=== PATIENT | female | born 1990 | race Caucasian/White ===

== ENCOUNTER 2018-02-07 10:57 | Emergency (ER) | payer OTHER ==
[2018-02-07 11:10] VITALS: BP 113/65; PULSE 91; TEMP 98.3; BMI 21.9
[2018-02-07] MEDS ORDERED: ACETAMINOPHEN 500 MG TABLET (FP) PO ONE (13:16)
[2018-02-07] MEDS ORDERED: ACETAMINOPHEN 500 MG TABLET (FP) ONE (13:20)
--- NOTE | 2018-02-07 13:42 | PDOC ---
History of Present Illness - General Chief Complaint: Sore Throat Stated Complaint: FEVER (15 WKS ), COUGH Time Seen by Provider: 02/07/18 12:51 History Source: Patient Exam Limitations: No Limitations - History of Present Illness Initial Comments: 02/07/18 13:43 This is a 28-year-old is currently 15 weeks gestation presents to the emergency department with rhinorrhea, nasal congestion, headaches, body aches, sore throat, moist cough for the past 4 days. Patient is also reported 3 episodes of posttussive vomiting. Patient with 2 parked today for evaluation and was referred to emergency department. Patient currently denies abdominal pain, vaginal bleeding, vaginal discharge, dysuria. Patient has been taking Claritin, Robitussin and Tylenol for relief of symptoms. Patient states his medications were by the symptoms come back after medications wear off. She denies chest pain, shortness of breath. Chest with next Past History - Past Medical History Allergies/Adverse Reactions: Allergies Allergy/AdvReac Type Severity Reaction Status Date / Time No Known Allergies Allergy Verified 02/07/18 11:10 Home Medications: Ambulatory Orders NK [No Known Home Medication] 02/07/18 COPD: No - Suicide/Smoking/Psychosocial Hx Smoking History: Never smoked Information on smoking cessation initiated: No Hx Alcohol Use: No Drug/Substance Use Hx: No Substance Use Type: None Review of Systems - Review of Systems Able to Perform ROS?: Yes Is the patient limited Marshallese proficient: No Constitutional: Yes: See HPI HEENTM: Yes: See HPI Respiratory: Yes: See HPI Cardiac (ROS): No: Symptoms Reported ABD/GI: Yes: See HPI : No: Symptoms Reported Musculoskeletal: Yes: See HPI Integumentary: No: Symptoms Reported Neurological: No: Symptoms reported Endocrine: No: Symptoms Reported Hematologic/Lymphatic: No: Symptoms Reported *Physical Exam - Vital Signs Last Vital Signs Temp Pulse Resp BP Pulse Ox 98.3 F 91 H 17 113/65 100 02/07/18 11:08 02/07/18 11:08 02/07/18 11:08 02/07/18 11:08 02/07/18 11:08 - Physical Exam General Appearance: Yes: Appropriately Dressed. No: Apparent Distress HEENT: positive: TMs Normal, Pharyngeal Erythema, Nasal Congestion, Rhinorrhea. negative: Tonsillar Exudate, Tonsillar Erythema, Sinus Tenderness Neck: positive: Trachea midline, Supple Respiratory/Chest: positive: Lungs Clear, Normal Breath Sounds. negative: Respiratory Distress, Accessory Muscle Use Cardiovascular: positive: Regular Rhythm, Regular Rate. negative: Murmur Gastrointestinal/Abdominal: positive: Normal Bowel Sounds, Soft. negative: Tender Musculoskeletal: positive: Normal Inspection. negative: CVA Tenderness Extremity: positive: Normal Inspection Integumentary: positive: Normal Color, Dry, Warm Neurologic: positive: Alert, Normal Response, Motor Strength 5/5 ED Treatment Course - Medications Given in the ED: ED Medications Discontinued Medications Generic Name Dose Route Start Last Admin Trade Name Freq PRN Reason Stop Dose Admin Acetaminophen 1,000 mg 02/07/18 13:16 02/07/18 13:22 Tylenol - PO 02/07/18 13:17 1,000 mg ONCE ONE Administration Medical Decision Making - Medical Decision Making 02/07/18 13:49 A/P: 28-year-old female with 4 days of flulike symptoms. Patient is 15 weeks by dates. Oropharynx with pharyngeal erythema. No tonsillar erythema or exudate present. Cobblestoning noted in the posterior oropharynx. No sinus tenderness present. TMs clear without erythema or exudates. External auditory canals clear. No cervical lymphadenopathy is present. Lungs clear to auscultation bilaterally. RRR. S1-S2 present. No murmur, rub or gallop appreciated. Abdomen soft nontender with from this palpated 1 cm below umbilicus. Cranial nerves II through XII intact. Steady gait noted. Influenza versus upper restrained infection. Influenza testing, Tylenol, reassess 02/07/18 14:27 Patient tested positive for influenza A. Given symptoms started more than 72 hours ago, I will defer treatment with Tamiflu. Symptomatic treatment was explained to the patient verbalizes understanding. I will discharge the patient home with follow-up with her OPTOELECTRONIC TECHNICIAN as scheduled. *DC/Admit/Observation/Transfer Diagnosis at time of Disposition: Influenza A - Discharge Dispostion Disposition: HOME Condition at time of disposition: Stable Admit: No - Referrals - Patient Instructions Additional Instructions: Rest, drink lots of fluids: Teas, water, soups, Pedialyte Saltwater gargles Steamy showers/seem to face break up mucus Avoid contact with others until fevers and cough resolved Lots of handwashing and good hygiene Continue [id number] medications for symptomatic relief Tylenol or Motrin for fever and pain Followup with private physician in one to 2 days as needed Return to emergency department for worsened symptoms, fevers, dehydration - Post Discharge Activity
== END 2018-02-07 15:01 | disposition home or self-care (01) ==
LOC: JERFT 10:57
DX: O26.892 Other specified pregnancy related conditions, second trimester (principal); O98.512 Other viral diseases complicating pregnancy, second trimester; J09.X2 Influenza due to identified novel influenza A virus with other respiratory manifestations; Z3A.15 15 weeks gestation of pregnancy
CPT/HCPCS: 87804; 99281-25

== ENCOUNTER 2019-06-16 12:55 | Inpatient (IN) | payer OTHER ==
--- NOTE | 2019-06-16 13:19 | PN ---
Progress Note (short form) - Note Progress Note: cx 9 cm 100 vx o mi, fhr cat 1, contraction q 2 min
[2019-06-16] MEDS ORDERED: AMPICILLIN - 2 GM in SODIUM CHLORIDE 100 ML IVPB ONE (13:23)
[2019-06-16 13:25] VITALS: BMI 26.2
--- NOTE | 2019-06-16 13:29 | HP ---
Past Medical History - Primary Care Physician PCP:: Maxx Cottrell - Admission Chief Complaint: 33.5 weeks, labor History of Present Illness: 29 yo f 33.5 weeks, c/o contraction, no rom, no bleeding, no fever , care [facility] care no complication cx 9 cm 100 vx 0 ,mi, fhr cat 1, regular contraction History Source: Patient Limitations to Obtaining History: Language Barrier - Past Medical History Gastrointestinal: Yes: Constipation. No: GERD ...: 3 ...Para: 2 ...Term: 2 ...EDC by Dates: 07/28/19 ...EDC by Sono: 07/28/19 Psych: Yes: Other (no h/o mental illness) - Past Surgical History Past Surgical History: Yes: None Hx Myomectomy: No Hx Transabdominal Cerclage: No - Smoking History Smoking history: Never smoked Have you smoked in the past 12 months: No - Alcohol/Substance Use Hx Alcohol Use: No History of Substance Use: reports: None - Social History Usual Living Arrangement: Yes: With Spouse History of Recent Travel: No Home Medications - Allergies Allergies/Adverse Reactions: Allergies Allergy/AdvReac Type Severity Reaction Status Date / Time No Known Allergies Allergy Verified 02/07/18 11:10 - Home Medications Home Medications: Ambulatory Orders Iron 1 tablet PO DAILY 07/18/18 Acetaminophen [Tylenol .Regular Strength -] 650 mg PO Q3H PRN tablet 07/19/18 Benzocaine [Americaine 20% [place] -] 1 spray TP DAILY PRN bottle 07/19/18 Ferrous Sulfate [Feosol] 325 mg PO BIDWM tab 07/19/18 Ibuprofen [Motrin -] 200 mg PO Q4H PRN tablet 07/19/18 Vitamins (Sjr) - 1 tab PO DAILY tablet 07/19/18 Witch Natalie 50% (Tucks) [Tucks Pads -] 1 pad TP DAILY PRN pad 07/19/18 Review of Systems - Review of Systems Constitutional: reports: No Symptoms Eyes: reports: No Symptoms HENT: reports: No Symptoms Neck: reports: No Symptoms Cardiovascular: reports: No Symptoms Gastrointestinal: reports: No Symptoms Genitourinary: reports: No Symptoms Breasts: reports: No Symptoms Reported Musculoskeletal: reports: No Symptoms Integumentary: reports: No Symptoms Neurological: reports: No Symptoms Endocrine: reports: No Symptoms Hematology/Lymphatic: reports: No Symptoms Psychiatric: reports: No Symptoms Physical Exam - Maternity Constitutional: Yes: Well Nourished, No Distress, Calm Eyes: Yes: WNL, Conjunctiva Clear, EOM Intact HENT: Yes: WNL, Atraumatic, Normocephalic Neck: Yes: WNL, Supple, Trachea Midline Cardiovascular: Yes: WNL, Regular Rate and Rhythm Breast(s): Yes: WNL - Abdominal Exam/OB Fundal Height: 32 Number of Fetuses: Single Presentation: Vertex Contractions: Yes Regularity: Regular Intensity: Mod/Strong Monitor Mode: External Heart Rate Location: [facility] Category: I Accelerations: Non-Uniform Decelerations: None - Vaginal Exam/OB Vaginal Bleediing: No Speculum Exam: No Dilatation (cm): 9cm Effacement (%): 100 Amniotic Membrane Status: Bulging Presentation: Vertex/Position Station: 0 - Physical Exam Musculoskeletal: Yes: WNL Extremities: Yes: WNL Edema: Yes Edema: LLE: Trace, RLE: Trace Deep Tendon Reflex Grade: Normal +2 Psychiatric: Yes: WNL Hemorrhage Risk Assessment - Risk Factors Medium Risk Factors: Yes: None High Risk Factors: Yes: None Risk Score: 1 Risk Level: Medium Risk Problem List - Problems (1) with 33 completed weeks gestation Code(s): Z3A.33 - 33 WEEKS GESTATION OF (2) with 33 completed weeks gestation Code(s): Z3A.33 - 33 WEEKS GESTATION OF (3) Premature labor Code(s): O60.00 - LABOR WITHOUT DELIVERY, UNSPECIFIED TRIMESTER Qualifiers: labor trimester: third trimester Fetus number: single or unspecified fetus Assessment/Plan admit for vaginal delivery, FHM
[2019-06-16] MEDS ORDERED: DEXTROSE 5%-LACTATED RINGERS 1,000 ML IV SCH (13:30)
[2019-06-16 13:45] LABS: BASO % 0.2 % (0-2.0); EOS % 0.8 % (0-4.5); HEMATOCRIT 38.3 % (32.4-45.2); HEMOGLOBIN 12.6 GM/dL (10.7-15.3); LYMPH % 15.7 % (8-40); MCH 27.7 pg (25.7-33.7); MCHC 32.8 g/dl (32.0-36.0); MEAN CELL VOLUME 84.4 fl (80-96); MEAN PLT VOLUME 10.2 fl (7.5-11.1); MONO % 5.4 % (3.8-10.2); NEUT % 77.9 % (42.8-82.8); PLATELET COUNT 94 K/MM3 (134-434); RBC 4.53 M/mm3 (3.60-5.2); RDW 15.1 % (11.6-15.6); WHITE BLOOD COUNT 11.8 K/mm3 (4.0-10.0)
[2019-06-16] MEDS ORDERED: BISACODYL 10 MG SUPP.RECT RC PRN (13:50)
[2019-06-16] MEDS ORDERED: BENZOCAINE 20% 57 GM BOTTLE TP PRN (13:50)
[2019-06-16] MEDS ORDERED: METHYLERGONOVINE MALEATE 0.2 MG/1 ML AMP IM PRN (13:50)
[2019-06-16] MEDS ORDERED: WITCH HAZEL 50% (TUCKS) 40 PAD/JAR PAD TP PRN (13:50)
[2019-06-16] MEDS ORDERED: BENZOCAINE 28 GM HEMORRHOIDAL OINTMENT TP PRN (13:50)
[2019-06-16 13:55] LABS: INR 0.96 (0.83-1.09); PROTHROMBIN TIME (PATIENT) 11.3 SEC (9.7-13.0)
--- NOTE | 2019-06-16 13:56 | PN ---
Delivery - Delivery Vaginal Delivery: No Problems (cx full , head on perinum,haed delivered , no cord, ant. and post shoulder with no difficulty . live baby girl 8/9 , no complication, EBL 300), Spontaneous Episiotomy/Laceration: None EBL (cc): 300 Delivery, Single - [place] Feeding Plan Initial Plan: Elected not to breastfeed exclusively throughout hospitalization
[2019-06-16 13:57] LABS: ACTIVATED PTT 31.2 SECONDS (25.2-36.5)
[2019-06-16] MEDS ORDERED: OXYTOCIN 20 UNITS in 0.9% NS 20 UNIT/1,000 ML INFUS.BAG IV SCH (14:00)
[2019-06-16] MEDS ORDERED: D5W-LR W/ 20 UNITS OXYTOCIN 1,000 ML IV SCH (14:00)
[2019-06-16 14:07] LABS: BLOOD UREA NITROGEN 6.5 mg/dL (7-18); CALCIUM 8.5 mg/dL (8.5-10.1); CREATININE 0.5 mg/dL (0.55-1.3); POTASSIUM 3.9 mmol/L (3.5-5.1)
[2019-06-16] MEDS: IBUPROFEN 600 MG TABLET (FP) PO PRN ×2 (14:52→19:49)
[2019-06-16] MEDS ORDERED: IBUPROFEN 600 MG TABLET (FP) PO ONE (14:54)
[2019-06-16] MEDS: ACETAMINOPHEN 325 MG TABLET (FP) PO PRN (19:50)
[2019-06-16] MEDS: FERROUS SO4 325 MG TABLET (FP) PO SCH (22:25)
[2019-06-17 08:24] LABS: BASO % 0.4 % (0-2.0); EOS % 1.8 % (0-4.5); HEMATOCRIT 31.5 % (32.4-45.2); HEMOGLOBIN 10.5 GM/dL (10.7-15.3); LYMPH % 17.9 % (8-40); MCH 27.9 pg (25.7-33.7); MCHC 33.2 g/dl (32.0-36.0); MONO % 6.8 % (3.8-10.2); NEUT % 73.1 % (42.8-82.8); PLATELET COUNT 77 K/MM3 (134-434); RBC 3.75 M/mm3 (3.60-5.2); RDW 14.8 % (11.6-15.6); WHITE BLOOD COUNT 12.9 K/mm3 (4.0-10.0)
[2019-06-17] MEDS: FERROUS SO4 325 MG TABLET (FP) PO SCH ×2 (09:01→22:15)
[2019-06-17] MEDS: PRENATAL VITAMINS W/ FOLIC ACID TABLET (FP) PO SCH (09:01)
[2019-06-17] MEDS ORDERED: DIPHTH,PERTUSS(ACELL),TET 0.5 ML DISP.SYRIN IM ONE (15:00)
[2019-06-17] MEDS ORDERED: SENNOSIDES/DOCUSATE COMBO (SENNA PLUS) TABLET (UD) PO PRN (22:00)
--- NOTE | 2019-06-17 22:05 | PN ---
Progress Note (short form) - Note Progress Note: ppd 1, s/p , doing well, no c/o CBC, BMP 06/17/19 07:27 06/16/19 13:10 Last Vital Signs Temp Pulse Resp BP Pulse Ox 98.3 F 60 20 97/53 L 06/17/19 08:35 06/17/19 08:35 06/17/19 08:35 06/17/19 08:35 abdomen soft, uterus firm, non tender no calf tenderness lochia mild plan ambulate , d/c home in am Problem List - Problems (1) with 33 completed weeks gestation Code(s): Z3A.33 - 33 WEEKS GESTATION OF (2) with 33 completed weeks gestation Code(s): Z3A.33 - 33 WEEKS GESTATION OF (3) Premature labor Code(s): O60.00 - LABOR WITHOUT DELIVERY, UNSPECIFIED TRIMESTER Qualifiers: labor trimester: third trimester Fetus number: single or unspecified fetus
[2019-06-17] MEDS: ACETAMINOPHEN 325 MG TABLET (FP) PO PRN (22:15)
[2019-06-17] MEDS: IBUPROFEN 600 MG TABLET (FP) PO PRN (22:15)
[2019-06-18] MEDS: FERROUS SO4 325 MG TABLET (FP) PO SCH (09:04)
[2019-06-18] MEDS: PRENATAL VITAMINS W/ FOLIC ACID TABLET (FP) PO SCH (09:04)
[2019-06-18 09:59] VITALS: BP 102/63; PULSE 65; TEMP 98.4
--- NOTE | 2019-06-18 21:49 | DS ---
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 Vital Signs: Vital Signs Temperature 98.4 F 06/18/19 09:00 Pulse Rate 65 06/18/19 09:00 Respiratory Rate 18 06/18/19 09:00 Blood Pressure 102/63 06/18/19 09:00 O2 Sat by Pulse Oximetry (%) Constitutional: Yes: Well Nourished, No Distress, Calm Eyes: Yes: WNL, Conjunctiva Clear, EOM Intact HENT: Yes: WNL, Atraumatic, Normocephalic Neck: Yes: WNL, Supple, Trachea Midline Cardiovascular: Yes: WNL, Regular Rate and Rhythm Respiratory: Yes: WNL, Regular, CTA Bilaterally Gastrointestinal: Yes: WNL ...Rectal Exam: Yes: WNL Renal/: Yes: WNL ....Post : Yes: Uterus firm, Uterus non-tender, Slight lochia rubra Breast(s): Yes: WNL Musculoskeletal: Yes: WNL Extremities: Yes: WNL Edema: No Integumentary: Yes: WNL Neurological: Yes: WNL, Alert, Oriented ...Motor Strength: WNL Psychiatric: Yes: WNL, Alert, Oriented Labs: CBC, BMP 06/17/19 07:27 06/16/19 13:10 Delivery - Delivery Vaginal Delivery: No Problems (cx full , head on perinum,haed delivered , no cord, ant. and post shoulder with no difficulty . live baby girl 8/9 , no complication, EBL 300), Spontaneous Type of Anesthesia: None Episiotomy/Laceration: None EBL (cc): 300 Delivery, Single - Stages of Labor Date 1st Stage Initiatied: 06/16/19 Time 1st Stage Initiated: 10:00 Date 2nd Stage Initiated: 06/16/19 Time 2nd Stage Initiated: 13:38 Date of Delivery: 06/16/19 Time of Delivery: 13:40 Time Placenta Delivered: 13:43 Placenta: Yes: Spontaneous - Condition of Infant Service Dog Trainer/Cotton Ball Machine Tender Present: Yes Name: Leo Sage Gender: Female Weight: 5 lb 1 oz Position: Left, OA Total Hours ROM (Hrs/Mins): 0/5 - 1 Minute Total Score: 8 5 Minutes Total Score: 9 - [place] Feeding Plan Initial Plan: Elected not to breastfeed exclusively throughout hospitalization Discharge Summary Reason For Visit: LABOR Procedures: Principal: Hospital Course: uneventful Condition: Good - Instructions Diet, Activity, Other Instructions: regular diet , no intercourse , follow up [facility] [address] care 4 weeks , if fever, pain, heavy vaginal bleeding call md Referrals: Maxx Cottrell MD [Staff Physician] - Disposition: HOME - Home Medications Comprehensive Discharge Medication List: Ambulatory Orders Iron 1 tablet PO DAILY 07/18/18 Acetaminophen [Tylenol .Regular Strength -] 650 mg PO Q3H PRN tablet 07/19/18 Benzocaine [Americaine 20% [place] -] 1 spray TP DAILY PRN bottle 07/19/18 Ferrous Sulfate [Feosol] 325 mg PO BIDWM tab 07/19/18 Ibuprofen [Motrin -] 200 mg PO Q4H PRN tablet 07/19/18 Vitamins (Sjr) - 1 tab PO DAILY tablet 07/19/18 Witch Natalie 50% (Tucks) [Tucks Pads -] 1 pad TP DAILY PRN pad 07/19/18 Ibuprofen [Motrin -] 600 mg PO QID #28 tablet 06/17/19
--- NOTE | 2019-06-25 16:27 | PATH ---
Surgical Pathology Report Patient Name: LOLA RYAN [facility]. Rec. #: [id number] /Age/Gender: 1990 (Age: 29) / F Account: [id number] Location: [facility] OBS/CANDY MAKER Taken: 06/16/2019 Received: 06/18/2019 Reported: 06/25/2019 Physicians: Maxx Cottrell M.D. Specimen(s) Received PLACENTA Clinical History , 33.5 weeks, marginal cord insertion Final Diagnosis PLACENTA: THIRD TRIMESTER PLACENTA. TRIVASCULAR CORD. MEMBRANES WITH NO DIAGNOSTIC ABNORMALITIES. Electronically Signed Poonam Tavarez M.D. Gross Description The specimen is received fresh labeled placenta and is a 304 gram, 12.0 x 12.0 x 3.8 cm. placenta with attached membranes and umbilical cord. The attached membranes are last, thick, cloudy and insert marginally. The umbilical cord measures 13.5 cm. in length and averages 1.2 cm. in diameter. The cord inserts eccentrically, 1 cm. to the nearest margin. No true knots or strictures are identified. Cut surface of the umbilical cord reveals 3 vessels. The surface is corado-blue with minimal fibrin deposition and appropriate caliber vessels. The maternal surface is red-brown with focal defects. Sectioning reveals red-brown, spongy parenchyma. No lesions are identified. Mixing Engineer sections are submitted in three cassettes as follows: 1- membrane rolls and umbilical cord; 2-3- full thickness sections of placenta. /06/21/2019 saudi06/21/2019
== END 2019-06-18 12:40 | disposition home or self-care (01) | DRG 560 ==
LOC: JLDR 12:55 → J3W 14:59
PROVIDERS: ADMIT Obstetrics & Gynecology; ATTEND Obstetrics & Gynecology
PROC: 10E0XZZ Delivery of Products of Conception, External Approach (ICD-10-PCS; principal; 2019-06-16)
DX: O60.14X0 Preterm labor third trimester with preterm delivery third trimester, not applicable or unspecified (principal); Z3A.33 33 weeks gestation of pregnancy; Z37.0 Single live birth
CPT/HCPCS: 36415; 36600; 59409; 80048; 82803; 85025; 85610; 85730; 86593; 86850; 86900; 86901; 88307-TC; 90715